=== PATIENT | female | born 1970 | race Hispanic/Latino ===

== ENCOUNTER 2021-03-01 19:07 | Emergency (ER) | payer BC ==
[~2021-03-01] VITALS: Ht 162.6 cm; Wt 74.8 kg
[2021-03-01] MEDS ORDERED: SODIUM CHLORIDE 0.9% 1000ML 1,000 ML IV STA (19:32)
[2021-03-01] MEDS ORDERED: HYDROCODONE/APAP 5MG-325MG TAB PO ONE (19:45)
[2021-03-01] MEDS ORDERED: ONDANSETRON HCL INJ 2MG/ML 2ML 2 MG/ML VIAL IV ONE (19:45)
[2021-03-01] MEDS ORDERED: KETOROLAC TROMETHAMINE 30 MG/ML VIAL IV ONE (19:45)
[2021-03-01] MEDS ORDERED: FAMOTIDINE 20 MG/2 ML VIAL IV ONE ×2 (19:45→20:20)
[2021-03-01] MEDS ORDERED: CEFTRIAXONE 1 GM VIAL IV ONE (20:00)
[2021-03-01] MEDS ORDERED: PROBIOTIC & AC1 EACH PO (20:06)
[2021-03-01] MEDS ORDERED: ACETAMINOPHEN-1 EAC4 PO (20:06)
[2021-03-01] MEDS ORDERED: ONDANSETRON ODT4 MG PO (20:06)
[2021-03-01] MEDS ORDERED: FAMOTIDINE20 MG PO (20:06)
[2021-03-01] MEDS ORDERED: ONDANSETRON HCL INJ 2MG/ML 2ML 2 MG/ML VIAL ONE (20:18)
[2021-03-01] MEDS ORDERED: SODIUM CHLORIDE 0.9% 50ML 50 ML ONE (20:19)
[2021-03-01] MEDS ORDERED: HYDROCODONE/APAP 5MG-325MG TAB ONE (20:19)
[2021-03-01] MEDS ORDERED: KETOROLAC TROMETHAMINE 30 MG/ML VIAL ONE (20:19)
[2021-03-01] MEDS ORDERED: SODIUM CHLORIDE 0.9% 1000ML 1,000 ML ONE (20:20)
[2021-03-01] MEDS ORDERED: CEFTRIAXONE 1 GM VIAL ONE (20:20)
[2021-03-01 22:03] VITALS: BP 110/64
== END 2021-03-01 22:03 | disposition home or self-care (01) ==
LOC: FSED 19:10
DX: U07.1 COVID-19 (principal); H66.92 Otitis media, unspecified, left ear; R50.9 Fever, unspecified; R11.2 Nausea with vomiting, unspecified; R19.7 Diarrhea, unspecified
CPT/HCPCS: 80053; 81003; 83518; 85025; 99284; J0696; J1885; J2405; J7030; U0002

== ENCOUNTER 2021-11-22 16:44 | Emergency (ER) | payer BC ==
[~2021-11-22] VITALS: Ht 162.6 cm; Wt 74.8 kg
[~2021-11-22 16:44] MED LIST: ACETAMINOPHEN-1 EAC4 PO; FAMOTIDINE20 MG PO; ONDANSETRON ODT4 MG PO; PROBIOTIC & AC1 EACH PO
[2021-11-22] MEDS ORDERED: IBUPROFEN200 MG PO (17:03)
[2021-11-22] MEDS ORDERED: ACETAMINOPHEN500 MG PO (17:03)
[2021-11-22] MEDS ORDERED: CEFDINIR300 MG PO (17:03)
[2021-11-22] MEDS ORDERED: CEFTRIAXONE 1 GM VIAL IM ONE (17:15)
[2021-11-22] MEDS ORDERED: LIDOCAINE HCL 2% LOCAL 20 ML VIAL ONE (17:29)
[2021-11-22] MEDS ORDERED: IBUPROFEN 600 MG TAB ONE ×2 (17:29→17:32)
[2021-11-22] MEDS ORDERED: CEFTRIAXONE 1 GM VIAL ONE (17:29)
[2021-11-22] MEDS ORDERED: IBUPROFEN 600 MG TAB PO ONE (17:30)
== END 2021-11-22 17:29 | disposition home or self-care (01) ==
LOC: FSED 16:48
DX: H66.92 Otitis media, unspecified, left ear (principal); J06.9 Acute upper respiratory infection, unspecified
CPT/HCPCS: 99283; J0696; J2001